=== PATIENT | female | born 1965 | race Two or more races ===

== ENCOUNTER → 2016-07-01 | Outpatient (CLI) | payer OTHER ==
[~2016-07-01] MED LIST: FERROUS SULFATE PO; NORGESTIMATE-E1 EAC1 PO; PERCOCET5/325 PO; TRINESSA
--- NOTE | ~2016-07-01 | MY11 ---
[facility] A Service of [facility] & [facility] RADIOLOGY TEXT RESULTS PATIENT: VINOD NICHOLSON LOCATION: [facility] : 67 UNIT #: [id number] AGE: [address]: EMMA CHAPMAN APRN SEX: F ORDER DR: [id number] [facility] [address] [place], [place] [address] [id number] O MR#: [id number] Acc #: [id number] NAME: VINOD NICHOLSON : 1965 SEX: F STUDY DATE/TIME: 07/01/2016 13:20 UNIT: [facility] ROOM: STUDY DESCRIPTION: MY Mammogram Screening Dig [place] Attending Physician: Domingo Chapman M.D. Ordering Physician: Domingo Chapman M.D. Primary Care Physician: Dagoberto Skinner M.D. MEDICAL IMAGING REPORT This report is preliminary unless electronic signature is present EXAM Bilateral digital screening mammogram with CAD, 07/01/2016. HISTORY 50-year-old female for routine screening. No reported problems. No personal history of breast cancer or family history. History of breast surgery last year (nature of surgery unclear). TECHNIQUE CC and MLO views of the breasts were obtained and reviewed with an FDA-approved CAD device. COMPARISON STUDIES 05/03/2015, 11/21/2010, 10/18/2009. FINDINGS Breast parenchyma is composed of scattered fibroglandular densities. The pattern is unchanged. Numerous calcifications are present in both breasts that overall do not appear appreciably changed for technical factors. The diffuse nature of the calcifications is suggestive of a benign etiology. Perhaps minimal slight interval progression, compared to a more distant 2009 study, with benign progression features. In the posterior right breast at approximately 12 o'clock, there is an asymmetry that has developed in the retroglandular fat. It measures about 8-9 mm and localizes superiorly on the MLO view. This appears new compared to prior studies. Suggest further evaluation with spot compression views and a true lateral view. If an abnormality persists, ultrasound may be indicated for further assessment. IMPRESSION There is a new asymmetry measuring 9 mm posteriorly at about 12 o'clock in STS. [facility] A Service of [facility] & [facility] RADIOLOGY TEXT RESULTS PATIENT: VINOD NICHOLSON LOCATION: [facility] : 67 UNIT #: [id number] AGE: [address]: EMMA CHAPMAN APRN SEX: F ORDER DR: the right breast. Additional views and potentially a breast ultrasound are recommended for further assessment. Patients over the age of 40 are entered into a reminder system with target due date for the next mammogram. A result letter will also be sent to the patient. BIRADS: 0 Incomplete; need additional imaging evaluation and/or prior mammograms for comparison. Dictated by... Cesar Elmore M.D. THIS IS AN ELECTRONICALLY VERIFIED REPORT Cesar Elmore M.D. at 07/02/2016 4:52 PM Hang TD: 07/02/2016 14:17 JOB #: [id number] MEDICAL IMAGING REPORT COPY
== END | disposition home or self-care (01) ==
LOC: CWCC 13:00
DX: Z12.31 Encounter for screening mammogram for malignant neoplasm of breast (principal); N64.89 Other specified disorders of breast
CPT/HCPCS: G0202

== ENCOUNTER → 2016-07-18 | Outpatient (CLI) | payer OTHER ==
--- NOTE | ~2016-07-18 | US24 ---
[facility] A Service of [facility] & [facility] RADIOLOGY TEXT RESULTS PATIENT: VINOD NICHOLSON LOCATION: [facility] : 67 UNIT #: [id number] AGE: [address]: EMMA CHAPMAN APRN SEX: F ORDER DR: [id number] [facility] [address] [place], [place] [address] [id number] O MR#: [id number] Acc #: [id number] NAME: VINOD NICHOLSON : 1965 SEX: F STUDY DATE/TIME: 07/18/2016 9:39 UNIT: [facility] ROOM: STUDY DESCRIPTION: US Breast Unilateral Attending Physician: Domingo Chapman M.D. Ordering Physician: Domingo Chapman M.D. Primary Care Physician: Dagoberto Skinner M.D. MEDICAL IMAGING REPORT This report is preliminary unless electronic signature is present EXAM Right breast ultrasound on 07/18. INDICATION Abnormal mammogram showing asymmetric tissue near the 12 o'clock right breast. FINDINGS For a full report, please see the mammogram report dated 07/18/2016. Patients over the age of 40 are entered into a reminder system with target due date for the next mammogram. A result letter will also be sent to the patient. BIRADS: 3 Probably benign finding; short interval follow-up suggested. Dictated by... Sabino Lubin Jr., M.D. THIS IS AN ELECTRONICALLY VERIFIED REPORT Sabino Lubin Jr., M.D. at 07/18/2016 2:48 PM ELKIN/kamila TD: 07/18/2016 12:17 JOB #: [id number] MEDICAL IMAGING REPORT Page 1 of 1 COPY
--- NOTE | ~2016-07-18 | MY8 ---
[facility] A Service of [facility] & [facility] RADIOLOGY TEXT RESULTS PATIENT: VINOD NICHOLSON LOCATION: [facility] : 67 UNIT #: [id number] AGE: [address]: EMMA CHAPMAN APRN SEX: F ORDER DR: [id number] [facility] [address] [place], [place] [address] [id number] O MR#: [id number] Acc #: [id number] NAME: VINOD NICHOLSON : 1965 SEX: F STUDY DATE/TIME: 07/18/2016 9:22 UNIT: [facility] ROOM: STUDY DESCRIPTION: MY Mammogram Dx Dig Rt Attending Physician: Domingo Chapman M.D. Ordering Physician: Domingo Chapman M.D. Primary Care Physician: Dagoberto Skinner M.D. MEDICAL IMAGING REPORT This report is preliminary unless electronic signature is present EXAM Diagnostic right mammogram, 07/18/2016. HISTORY Early recall imaging for asymmetric density near the 12 o'clock position of the right breast on recent screening. Patient has no complaints. FINDINGS Spot compression right CC and MLO views were obtained in addition to a standard true lateral view. The study was reviewed with an FDA-approved CAD device. Comparison made with 07/01/2016, 05/03/2015, 11/21/2010, and 10/18/2009. The area of asymmetry in the deep 12 o'clock right breast effaces to a large degree on the additional imaging today. It is similar in appearance to prior studies. Ultrasound was performed, as well. Ultrasound reveals no abnormality in the deep right breast from the 11 to 1 o'clock axes. As a precaution, 6-month follow-up mammogram of the right breast is recommended. Ultrasound could be performed at that time, if needed. Findings and recommendations were discussed with the patient at the time of her exam today. IMPRESSION Probably benign mammogram with a negative targeted right ultrasound. 6-month follow-up mammogram of the right breast is recommended with ultrasound, if needed. Patients over the age of 40 are entered into a reminder system with target STS. [facility] A Service of [facility] & [facility] RADIOLOGY TEXT RESULTS PATIENT: VINOD NICHOLSON LOCATION: [facility] #: [id number] : 67 UNIT #: [id number] AGE: [address]: EMMA CHAPMAN APRN SEX: F ORDER DR: due date for the next mammogram. A result letter will also be sent to the patient. BIRADS: 3 Probably benign finding; short interval followup suggested. Dictated by... Sabino Lubin Jr., M.D. THIS IS AN ELECTRONICALLY VERIFIED REPORT Sabino Lubin Jr., M.D. at 07/18/2016 2:48 PM ELKIN/horacio TD: 07/18/2016 12:37 JOB #: [id number] MEDICAL IMAGING REPORT Page 1 of 1 COPY
== END | disposition home or self-care (01) ==
LOC: CMAM 08:42
DX: N64.89 Other specified disorders of breast (principal)
CPT/HCPCS: 76641; G0206

== ENCOUNTER → 2017-01-02 | Outpatient (CLI) | payer OTHER ==
--- NOTE | ~2017-01-02 | MY25 ---
[facility] A Service of [facility] & [facility] RADIOLOGY TEXT RESULTS PATIENT: VINOD NICHOLSON LOCATION: [facility] : 67 UNIT #: [id number] AGE: [address]: EMMA CHAPMAN APRN SEX: F ORDER DR: [id number] [facility] [address] [place], [place] [address] [id number] O MR#: [id number] Acc #: [id number] NAME: VINOD NICHOLSON : 1965 SEX: F STUDY DATE/TIME: 01/02/2017 14:27 UNIT: [facility] ROOM: STUDY DESCRIPTION: DANIEL EMILY INIGUEZ W/ CAD UNI RT Attending Physician: Domingo Chapman M.D. Ordering Physician: Domingo Chapman M.D. Primary Care Physician: Dagoberto Skinner M.D. MEDICAL IMAGING REPORT This report is preliminary unless electronic signature is present EXAM Unilateral right digital diagnostic mammogram with CAD, 01/02/2017. INDICATIONS Six-month followup of a probably benign asymmetry in the right breast. No new problems. Family history positive in a aunt. TECHNIQUE CC, MLO and true lateral views were obtained and reviewed with an FDA approved CAD device. COMPARISON STUDIES 07/18/2016, 06/03/2016, 05/03/2015, 11/21/2010. FINDINGS The asymmetry in the deep 12 o'clock position, right breast, is unchanged and therefore probably benign. Imaging features are similar to the most recent comparison studies for technical factors. No new suspicious finding identified. There are benign calcifications throughout the right breast. Absent new or worsening symptoms in the breast, the patient should return in 6 months for bilateral diagnostic mammogram to document 1 year stability. Ultrasound was not thought to offer additional diagnostic benefit today given prior ultrasound findings were negative. Findings and recommendations have been discussed with the patient here in the department. She has voiced understanding and agreement. IMPRESSION 1. Probably benign asymmetry in the 12 o'clock position right breast is stable. Reevaluation in conjunction with bilateral diagnostic mammogram in 6 months is recommended, as described above. [facility] A Service of [facility] & [facility] RADIOLOGY TEXT RESULTS PATIENT: VINOD NICHOLSON LOCATION: [facility] : 67 UNIT #: [id number] AGE: [address]: EMMA CHAPMAN APRN SEX: F ORDER DR: Patients over the age of 40 are entered into a reminder system with target due date for the next mammogram. A result letter will also be sent to the patient. BIRADS: 3 Probably benign finding; short interval followup suggested. Dictated by... Cesar Elmore M.D. THIS IS AN ELECTRONICALLY VERIFIED REPORT Cesar Elmore M.D. at 01/03/2017 8:28 AM Yasmany TD: 01/03/2017 05:56 JOB #: [id number] MEDICAL IMAGING REPORT Page 1 of 1 COPY
== END | disposition home or self-care (01) ==
LOC: CMAM 13:57
DX: R92.8 Other abnormal and inconclusive findings on diagnostic imaging of breast (principal); N64.89 Other specified disorders of breast; R92.1 Mammographic calcification found on diagnostic imaging of breast
CPT/HCPCS: G0206